=== PATIENT | male | born 1955 | race Caucasian/White ===

== ENCOUNTER 2018-05-23 22:30 | Emergency (ER) | payer BC ==
[~2018-05-23] VITALS: Ht 179.1 cm; Wt 97.3 kg
[2018-05-23] MEDS ORDERED: CefTRIAXone 1000mg IM Kit (w/lidocaine diluent) IM ONE (23:30)
[2018-05-24 00:05] LABS: ALANINE AMINOTRANSFERASE 19 U/L (12-78); ALBUMIN/GLOBULIN RATIO 0.9 (1.1-1.5); ALKALINE PHOSPHATASE 66 IU/L (46-116); ANION GAP 6 (8-16); ASPARTATE AMINO TRANSFERASE 13 U/L (10-37); BILIRUBIN,TOTAL 0.6 MG/DL (0.1-1.0); BLOOD UREA NITROGEN 19 MG/DL (7-18); BUN/CREATININE RATIO 14.3 (5.4-32.0); CHLORIDE 105 MMOL/L (99-107); CREATININE 1.33 MG/DL (0.60-1.10); POTASSIUM 3.7 MMOL/L (3.5-5.1); SODIUM 137 MMOL/L (135-145); TOTAL CARBON DIOXIDE 26.5 MMOL/L (24-32); TOTAL PROTEIN 6.5 G/DL (6.4-8.2); eGFR 54 ML/MIN
[2018-05-24 00:06] LABS: GLUCOSE 105 MG/DL (70-104)
[2018-05-24 00:13] LABS: BASOPHILS % (AUTO) 0.2 % (0-1); EOSINOPHILS # (AUTO) 0.1 X10'3 (0-0.9); EOSINOPHILS % (AUTO) 6.7 % (0-6); HEMATOCRIT 24.3 % (42.0-52.0); HEMOGLOBIN 8.6 g/dl (14.0-17.9); LYMPHOCYTES # (AUTO) 0.7 X10'3 (1.1-4.8); LYMPHOCYTES % (AUTO) 49.9 % (21-51); MEAN CORPUSCULAR HEMOGLOBIN 37.5 PG (27.0-31.0); MEAN CORPUSCULAR HGB CONC 35.1 % (33.0-36.5); MEAN CORPUSCULAR VOLUME 106.7 FL (78-98); MEAN PLATELET VOLUME 7.6 FL (7.4-10.4); MONOCYTES % (AUTO) 0.4 % (2-12); NEUTROPHILS # (AUTO) 0.6 X10'3 (1.8-7.7); NEUTROPHILS % (AUTO) 42.8 % (42-75); PLATELET COUNT 52 X10'3 (140-440); RED BLOOD COUNT 2.28 X10'6 (4.70-6.10); RED CELL DISTRIBUTION WIDTH 14.5 % (11.5-14.5)
[2018-05-24 00:22] LABS: WHITE BLOOD COUNT 1.3 X10'3 (4.5-11.0)
[2018-05-24 00:33] LABS: TOTAL CELLS COUNTED 100
[2018-05-24 00:35] LABS: PLATELET ESTIMATE DECREASED
[2018-05-24] MEDS ORDERED: LEVO500T2 PO (02:19)
[2018-05-24] MEDS ORDERED: HYDR-3965 PO (02:19)
[2018-05-24 02:40] VITALS: BP 134/73
== END 2018-05-24 02:43 | disposition home or self-care (01) ==
LOC: ER 22:32 → MERGE 22:32 → ER 05-24 02:43
DX: L03.116 Cellulitis of left lower limb (principal); Z79.899 Other long term (current) drug therapy
CPT/HCPCS: 36415; 76700; 80053; 85025; 93971; 96372; 99285; J0696

== ENCOUNTER 2018-05-25 14:08 | Inpatient (IN) | payer BC ==
[~2018-05-25] VITALS: Ht 180.3 cm; Wt 95.0 kg
[~2018-05-25 14:08] MED LIST: HYDR-3965 PO; LEVO500T2 PO
[2018-05-25] MEDS ORDERED: normal saline 1000ML IV soln IVB ONE (14:50)
[2018-05-25] MEDS ORDERED: ampicillin/sulbac 3gm/NS 100ml 100 ML IV STA ×2 (14:50→16:57)
[2018-05-25] MEDS ORDERED: gentamicin 40 MG/1 ML inj IV ONE (14:50)
[2018-05-25] MEDS ORDERED: gentamicin inj 410 MG in normal saline 100ml IV soln 100 ML IV ONE (15:10)
[2018-05-25 15:30] LABS: HEMATOCRIT 24.5 % (42.0-52.0); HEMOGLOBIN 8.5 g/dl (14.0-17.9); MEAN CORPUSCULAR HEMOGLOBIN 37.2 PG (27.0-31.0); MEAN CORPUSCULAR HGB CONC 34.7 % (33.0-36.5); MEAN CORPUSCULAR VOLUME 107.2 FL (78-98); MEAN PLATELET VOLUME 7.3 FL (7.4-10.4); PLATELET COUNT 57 X10'3 (140-440); RED BLOOD COUNT 2.28 X10'6 (4.70-6.10); WHITE BLOOD COUNT 1.1 X10'3 (4.5-11.0)
[2018-05-25 15:40] LABS: PARTIAL THROMBOPLASTIN TIME 28 SECONDS (22-32); PROTHROMBIN TIME 10.8 SECONDS (9.0-12.0)
[2018-05-25 15:45] LABS: ALANINE AMINOTRANSFERASE 20 U/L (12-78); ALBUMIN 2.5 G/DL (3.4-5.0); ALBUMIN/GLOBULIN RATIO 0.7 (1.1-1.5); ALKALINE PHOSPHATASE 76 IU/L (46-116); ANION GAP 9 (8-16); ASPARTATE AMINO TRANSFERASE 23 U/L (10-37); BILIRUBIN,TOTAL 0.8 MG/DL (0.1-1.0); BLOOD UREA NITROGEN 15 MG/DL (7-18); BUN/CREATININE RATIO 12.1 (5.4-32.0); CALCIUM 7.8 MG/DL (8.5-10.1); CHLORIDE 104 MMOL/L (99-107); CREATININE 1.24 MG/DL (0.60-1.10); GLUCOSE 117 MG/DL (70-104); POTASSIUM 3.8 MMOL/L (3.5-5.1); SODIUM 136 MMOL/L (135-145); TOTAL CARBON DIOXIDE 22.8 MMOL/L (24-32); TOTAL PROTEIN 6.3 G/DL (6.4-8.2); eGFR 59 ML/MIN
[2018-05-25 15:53] LABS: ANISOCYTOSIS 1+; PLATELET ESTIMATE DECREASED; POLYCHROMASIA FEW; TARGET CELLS FEW; TOTAL CELLS COUNTED 100
[2018-05-25 16:09] LABS: CLARITY,URINE Clear (Clear); COLOR,URINE Yellow (Yellow); GLUCOSE, URINE Negative (Neg); KETONES,URINE Negative (Neg); LEUKOCYTE ESTERASE ,URINE Negative (Neg); NITRITES, URINE Negative (Neg); OCCULT BLOOD,URINE Negative (Neg); PH,URINE 5.5 (4.8-8.0); PROTEIN,URINE Trace mg/dl (Neg)
[2018-05-25 16:16] LABS: UA COLLECTION TYPE CLN CATCH MIDSTREAM
[2018-05-25 16:18] LABS: BACTERIA,URINE NONE SEEN /HPF (Neg); COARSE GRANULAR CAST 0-3 /LPF (NEGATIVE); RBC,URINE 0-2 /HPF (0-2); SQUAMOUS EPITHELIAL CELL,UR FEW /LPF (FEW); WBC,URINE NONE SEEN /HPF (0-4)
[2018-05-25] MEDS ORDERED: ondansetron/PF 4mg/2ml inj IV PRN (17:45)
[2018-05-25] MEDS ORDERED: magnesium Cl slow-release 64mg tablet PO PRN (17:45)
[2018-05-25] MEDS ORDERED: potassium Cl 40MEQ/NS 500ml 500 ML IV PRN ×2 (17:45)
[2018-05-25] MEDS ORDERED: potassium Cl 20 mEq SR tablet PO PRN ×2 (17:45)
[2018-05-25] MEDS ORDERED: magnesium 4gm in 100ml NS 100 ML IV PRN (17:45)
[2018-05-25] MEDS ORDERED: magnesium 1gm/100ml D5W IVPB 50 ML IV PRN (17:45)
[2018-05-25] MEDS ORDERED: HYDROcodone/acetaminophen 5mg/325mg tablet PO PRN (17:45)
[2018-05-25] MEDS ORDERED: heparin, porcine 5000 units/ml vial SQ SCH (20:00)
[2018-05-25] MEDS: docusate sod 100mg capsule PO SCH (21:00)
[2018-05-25] MEDS ORDERED: temazepam 15mg capsule PO PRN (21:00)
[2018-05-25] MEDS: normal saline 1000ml 1,000 ML IV SCH (21:00)
[2018-05-25 21:15] VITALS: BP 110/54
[2018-05-25] MEDS: ceFAZolin 1GM/D5W- ADD-VANTAGE 50 ML IV SCH (23:52)
[2018-05-26] VITALS: BP 124/53
[2018-05-26] MEDS: acetaminophen 325mg tablet PO PRN ×2 (00:41→11:51)
[2018-05-26 05:14] LABS: BASOPHILS % (AUTO) 0.6 % (0-1); EOSINOPHILS # (AUTO) 0.1 X10'3 (0-0.9); EOSINOPHILS % (AUTO) 5.1 % (0-6); HEMATOCRIT 22.2 % (42.0-52.0); HEMOGLOBIN 7.7 g/dl (14.0-17.9); LYMPHOCYTES # (AUTO) 0.4 X10'3 (1.1-4.8); LYMPHOCYTES % (AUTO) 33.2 % (21-51); MEAN CORPUSCULAR HEMOGLOBIN 37.6 PG (27.0-31.0); MEAN CORPUSCULAR HGB CONC 34.7 % (33.0-36.5); MEAN CORPUSCULAR VOLUME 108.2 FL (78-98); MEAN PLATELET VOLUME 7.9 FL (7.4-10.4); MONOCYTES % (AUTO) 3.8 % (2-12); NEUTROPHILS # (AUTO) 0.6 X10'3 (1.8-7.7); NEUTROPHILS % (AUTO) 57.3 % (42-75); RED BLOOD COUNT 2.05 X10'6 (4.70-6.10); RED CELL DISTRIBUTION WIDTH 14.2 % (11.5-14.5); WHITE BLOOD COUNT 1.1 X10'3 (4.5-11.0)
[2018-05-26 05:39] LABS: PLATELET COUNT 50 X10'3 (140-440)
[2018-05-26 06:23] LABS: ANISOCYTOSIS 1+; PLATELET ESTIMATE DECREASED; TOTAL CELLS COUNTED 100
[2018-05-26 06:24] LABS: POLYCHROMASIA FEW
[2018-05-26 06:50] LABS: ALBUMIN 2.2 G/DL (3.4-5.0); ANION GAP 9 (8-16); BLOOD UREA NITROGEN 15 MG/DL (7-18); BUN/CREATININE RATIO 11.3 (5.4-32.0); CALCIUM 7.6 MG/DL (8.5-10.1); CHLORIDE 105 MMOL/L (99-107); CREATININE 1.33 MG/DL (0.60-1.10); GLUCOSE 116 MG/DL (70-104); MAGNESIUM 1.5 MG/DL (1.5-2.4); POTASSIUM 3.8 MMOL/L (3.5-5.1); SODIUM 138 MMOL/L (135-145); eGFR 54 ML/MIN
[2018-05-26 07:33] VITALS: BP 132/57
[2018-05-26] MEDS: K and/or MAG REPLACEMENT MC SCH (08:00)
[2018-05-26] MEDS: docusate sod 100mg capsule PO SCH ×2 (08:28→19:26)
[2018-05-26] MEDS: ceFAZolin 1GM/D5W- ADD-VANTAGE 50 ML IV SCH ×3 (08:28→23:45)
[2018-05-26] MEDS: normal saline 1000ml 1,000 ML IV SCH ×3 (08:28→19:26)
[2018-05-26 11:00] VITALS: BP 148/96
[2018-05-26] MEDS ORDERED: TBO-filgrastim 300 MCG/0.5 ML inj. SQ ONE (11:15)
[2018-05-26 18:00] VITALS: BP 142/66
[2018-05-26] MEDS: lactobacillus rhamnosus 10,000 MMU CELLS/CAPSULE PO SCH (19:26)
[2018-05-26 23:50] VITALS: BP 128/71
[2018-05-27] MEDS: normal saline 1000ml 1,000 ML IV SCH ×2 (05:29→18:36)
[2018-05-27 06:21] LABS: ALBUMIN 1.9 G/DL (3.4-5.0); ANION GAP 7 (8-16); BLOOD UREA NITROGEN 13 MG/DL (7-18); BUN/CREATININE RATIO 11.3 (5.4-32.0); CALCIUM 7.8 MG/DL (8.5-10.1); CHLORIDE 104 MMOL/L (99-107); CREATININE 1.15 MG/DL (0.60-1.10); GLUCOSE 105 MG/DL (70-104); MAGNESIUM 1.7 MG/DL (1.5-2.4); POTASSIUM 3.8 MMOL/L (3.5-5.1); SODIUM 137 MMOL/L (135-145); TOTAL CARBON DIOXIDE 25.8 MMOL/L (24-32); eGFR 64 ML/MIN
[2018-05-27 06:27] LABS: HEMOGLOBIN 7.2 g/dl (14.0-17.9); MEAN CORPUSCULAR HEMOGLOBIN 37.8 PG (27.0-31.0); MEAN CORPUSCULAR HGB CONC 35.2 % (33.0-36.5); MEAN CORPUSCULAR VOLUME 107.3 FL (78-98); MEAN PLATELET VOLUME 8.2 FL (7.4-10.4); RED BLOOD COUNT 1.91 X10'6 (4.70-6.10); RED CELL DISTRIBUTION WIDTH 14.1 % (11.5-14.5); WHITE BLOOD COUNT 1.4 X10'3 (4.5-11.0)
[2018-05-27 07:02] LABS: HEMATOCRIT 20.5 % (42.0-52.0); PLATELET COUNT 47 X10'3 (140-440)
[2018-05-27 07:08] LABS: ANISOCYTOSIS 1+; PLATELET ESTIMATE DECREASED; TOTAL CELLS COUNTED 100
[2018-05-27 07:09] LABS: POLYCHROMASIA FEW; TARGET CELLS FEW
[2018-05-27 07:40] VITALS: BP 134/68
[2018-05-27] MEDS: K and/or MAG REPLACEMENT MC SCH (08:00)
[2018-05-27] MEDS ORDERED: levoFLOXACIN-Levaquin 750MG/D5 150 ML IV SCH (08:00)
[2018-05-27] MEDS: lactobacillus rhamnosus 10,000 MMU CELLS/CAPSULE PO SCH (08:00)
[2018-05-27] MEDS: docusate sod 100mg capsule PO SCH ×2 (08:58→19:28)
[2018-05-27] MEDS: ceFAZolin 1GM/D5W- ADD-VANTAGE 50 ML IV SCH (08:58)
[2018-05-27] MEDS ORDERED: TBO-filgrastim 300 MCG/0.5 ML inj. SQ ONE (11:55)
[2018-05-27 12:41] VITALS: BP 135/67
[2018-05-27] MEDS: piperacillin/tazo 3.375gm/50ml 50 ML IV SCH ×2 (14:38→19:28)
[2018-05-27] MEDS: vancomycin inj 1,250 MG in normal saline 250ml IV soln 250 ML IV SCH (15:25)
[2018-05-27] MEDS: valacyclovir 500mg tablet PO SCH (15:26)
[2018-05-27 19:00] VITALS: BP 123/62
[2018-05-27] MEDS: acetaminophen 325mg tablet PO PRN (19:28)
[2018-05-27] MEDS ORDERED: magnesium hydroxide 30ml (MOM) UD suspension PO PRN (22:45)
[2018-05-27 23:49] VITALS: BP 137/65
[2018-05-28] MEDS: valacyclovir 500mg tablet PO SCH ×3 (00:03→15:56)
[2018-05-28] MEDS: vancomycin inj 1,250 MG in normal saline 250ml IV soln 250 ML IV SCH ×2 (00:03→13:05)
[2018-05-28] MEDS: normal saline 1000ml 1,000 ML IV SCH ×4 (00:04→18:06)
[2018-05-28] MEDS: piperacillin/tazo 3.375gm/50ml 50 ML IV SCH ×2 (01:40→07:57)
[2018-05-28 05:12] LABS: BASOPHILS % (AUTO) 0.1 % (0-1); EOSINOPHILS # (AUTO) 0.1 X10'3 (0-0.9); EOSINOPHILS % (AUTO) 4.3 % (0-6); LYMPHOCYTES # (AUTO) 0.7 X10'3 (1.1-4.8); LYMPHOCYTES % (AUTO) 52.6 % (21-51); MEAN CORPUSCULAR HEMOGLOBIN 36.9 PG (27.0-31.0); MEAN CORPUSCULAR HGB CONC 34.2 % (33.0-36.5); MEAN CORPUSCULAR VOLUME 107.9 FL (78-98); MEAN PLATELET VOLUME 8.1 FL (7.4-10.4); MONOCYTES % (AUTO) 1.8 % (2-12); NEUTROPHILS # (AUTO) 0.5 X10'3 (1.8-7.7); NEUTROPHILS % (AUTO) 41.2 % (42-75); RED BLOOD COUNT 1.89 X10'6 (4.70-6.10); RED CELL DISTRIBUTION WIDTH 13.9 % (11.5-14.5); WHITE BLOOD COUNT 1.3 X10'3 (4.5-11.0)
[2018-05-28 05:24] LABS: HEMATOCRIT 20.4 % (42.0-52.0); PLATELET COUNT 50 X10'3 (140-440)
[2018-05-28 05:34] LABS: ANION GAP 7 (8-16); BLOOD UREA NITROGEN 16 MG/DL (7-18); BUN/CREATININE RATIO 13.3 (5.4-32.0); CALCIUM 7.9 MG/DL (8.5-10.1); CHLORIDE 104 MMOL/L (99-107); GLUCOSE 106 MG/DL (70-104); MAGNESIUM 1.8 MG/DL (1.5-2.4); POTASSIUM 3.8 MMOL/L (3.5-5.1); SODIUM 137 MMOL/L (135-145); TOTAL CARBON DIOXIDE 26.3 MMOL/L (24-32); eGFR 61 ML/MIN
[2018-05-28 06:28] LABS: TOTAL CELLS COUNTED 100
[2018-05-28 06:29] LABS: ANISOCYTOSIS 1+; PLATELET ESTIMATE DECREASED; POLYCHROMASIA FEW
[2018-05-28 06:30] LABS: TEAR DROP CELLS FEW
[2018-05-28 07:00] VITALS: BP 131/68
[2018-05-28] MEDS: acetaminophen 325mg tablet PO PRN ×2 (07:58→19:31)
[2018-05-28] MEDS: docusate sod 100mg capsule PO SCH ×2 (07:58→19:17)
[2018-05-28] MEDS: K and/or MAG REPLACEMENT MC SCH (08:00)
[2018-05-28 11:00] VITALS: BP 98/56
[2018-05-28] MEDS ORDERED: magnesium 1gm/100ml D5W IVPB 100 ML IV PRN (13:27)
[2018-05-28] MEDS: cefepime 2g/NS 100ml ADVANTAGE 100 ML IV SCH (19:31)
[2018-05-28 20:00] VITALS: BP 125/62
[2018-05-29] VITALS (12 sets, daily range): BP systolic 109–135; BP diastolic 51–67
[2018-05-29] MEDS ORDERED: VANCOMYCIN LEVEL IV ONE ×2 (00:30→12:30)
[2018-05-29] MEDS: valacyclovir 500mg tablet PO SCH ×4 (00:42→23:20)
[2018-05-29] MEDS: vancomycin inj 1,250 MG in normal saline 250ml IV soln 250 ML IV SCH (00:42)
[2018-05-29 05:16] LABS: BASOPHILS % (AUTO) 0.6 % (0-1); EOSINOPHILS # (AUTO) 0.1 X10'3 (0-0.9); EOSINOPHILS % (AUTO) 4.1 % (0-6); LYMPHOCYTES # (AUTO) 0.5 X10'3 (1.1-4.8); LYMPHOCYTES % (AUTO) 35.8 % (21-51); MEAN CORPUSCULAR HEMOGLOBIN 37.4 PG (27.0-31.0); MEAN CORPUSCULAR HGB CONC 34.5 % (33.0-36.5); MEAN CORPUSCULAR VOLUME 108.1 FL (78-98); MEAN PLATELET VOLUME 8.4 FL (7.4-10.4); MONOCYTES # (AUTO) 0.2 X10'3 (0-0.9); MONOCYTES % (AUTO) 17.3 % (2-12); NEUTROPHILS # (AUTO) 0.5 X10'3 (1.8-7.7); NEUTROPHILS % (AUTO) 42.2 % (42-75); PLATELET COUNT 55 X10'3 (140-440); RED BLOOD COUNT 1.86 X10'6 (4.70-6.10); RED CELL DISTRIBUTION WIDTH 14.2 % (11.5-14.5); WHITE BLOOD COUNT 1.3 X10'3 (4.5-11.0)
[2018-05-29 05:23] LABS: ALBUMIN 1.9 G/DL (3.4-5.0); ANION GAP 6 (8-16); BLOOD UREA NITROGEN 18 MG/DL (7-18); BUN/CREATININE RATIO 14.3 (5.4-32.0); CALCIUM 7.5 MG/DL (8.5-10.1); CHLORIDE 106 MMOL/L (99-107); CREATININE 1.26 MG/DL (0.60-1.10); GLUCOSE 102 MG/DL (70-104); MAGNESIUM 1.8 MG/DL (1.5-2.4); SODIUM 138 MMOL/L (135-145); TOTAL CARBON DIOXIDE 26.5 MMOL/L (24-32); eGFR 58 ML/MIN
[2018-05-29 05:32] LABS: HEMATOCRIT 20.1 % (42.0-52.0); HEMOGLOBIN 6.9 g/dl (14.0-17.9)
[2018-05-29 06:35] LABS: ANISOCYTOSIS 1+; PLATELET ESTIMATE DECREASED; TOTAL CELLS COUNTED 100; TOXIC GRANULATION 1+
[2018-05-29] MEDS: cefepime 2g/NS 100ml ADVANTAGE 100 ML IV SCH ×2 (07:39→19:42)
[2018-05-29] MEDS: K and/or MAG REPLACEMENT MC SCH (07:41)
[2018-05-29] MEDS: docusate sod 100mg capsule PO SCH ×2 (07:42→20:00)
[2018-05-29] MEDS: acetaminophen 325mg tablet PO PRN ×2 (12:58→23:20)
[2018-05-29] MEDS: normal saline 1000ml 1,000 ML IV SCH (19:42)
[2018-05-30 03:00] VITALS: BP 131/69
[2018-05-30 05:11] LABS: BASOPHILS % (AUTO) 0.6 % (0-1); EOSINOPHILS # (AUTO) 0.1 X10'3 (0-0.9); EOSINOPHILS % (AUTO) 3.1 % (0-6); HEMATOCRIT 22.9 % (42.0-52.0); HEMOGLOBIN 7.9 g/dl (14.0-17.9); LYMPHOCYTES # (AUTO) 0.8 X10'3 (1.1-4.8); LYMPHOCYTES % (AUTO) 49.3 % (21-51); MEAN CORPUSCULAR HGB CONC 34.5 % (33.0-36.5); MEAN CORPUSCULAR VOLUME 104.3 FL (78-98); MEAN PLATELET VOLUME 8.4 FL (7.4-10.4); MONOCYTES # (AUTO) 0.1 X10'3 (0-0.9); NEUTROPHILS # (AUTO) 0.7 X10'3 (1.8-7.7); PLATELET COUNT 72 X10'3 (140-440); RED CELL DISTRIBUTION WIDTH 16.6 % (11.5-14.5); WHITE BLOOD COUNT 1.7 X10'3 (4.5-11.0)
[2018-05-30 05:31] LABS: ALBUMIN 1.9 G/DL (3.4-5.0); ANION GAP 6 (8-16); BLOOD UREA NITROGEN 18 MG/DL (7-18); BUN/CREATININE RATIO 14.9 (5.4-32.0); CHLORIDE 105 MMOL/L (99-107); CREATININE 1.21 MG/DL (0.60-1.10); GLUCOSE 97 MG/DL (70-104); MAGNESIUM 1.9 MG/DL (1.5-2.4); POTASSIUM 4.1 MMOL/L (3.5-5.1); SODIUM 137 MMOL/L (135-145); TOTAL CARBON DIOXIDE 26.4 MMOL/L (24-32); eGFR 61 ML/MIN
[2018-05-30 05:56] LABS: % IRON SATURATION 69 % (11-46); IRON 85 UG/DL (53-167); TOTAL IRON BINDING CAPACITY 123 UG/DL (259-388)
[2018-05-30 06:18] LABS: ANISOCYTOSIS 1+; LARGE PLATELETS FEW; PLATELET ESTIMATE DECREASED; TOTAL CELLS COUNTED 100; TOXIC GRANULATION 1+
[2018-05-30 06:40] LABS: FERRITIN 1366 NG/ML (26-388)
[2018-05-30] MEDS: cefepime 2g/NS 100ml ADVANTAGE 100 ML IV SCH ×2 (07:09→19:30)
[2018-05-30] MEDS: valacyclovir 500mg tablet PO SCH ×2 (07:09→16:45)
[2018-05-30] MEDS: docusate sod 100mg capsule PO SCH ×2 (07:12→19:35)
[2018-05-30] MEDS: K and/or MAG REPLACEMENT MC SCH (07:13)
[2018-05-30 07:32] VITALS: BP 132/67
[2018-05-30] MEDS: normal saline 1000ml 1,000 ML IV SCH ×2 (08:43→17:43)
[2018-05-30 11:40] VITALS: BP 126/60
[2018-05-30 12:39] LABS: OCCULT BLOOD STOOL NEGATIVE (Neg)
[2018-05-30 20:00] VITALS: BP 117/56
[2018-05-31] VITALS: BP 130/70
[2018-05-31] MEDS ORDERED: VANCOMYCIN LEVEL IV ONE (00:30)
[2018-05-31] MEDS: valacyclovir 500mg tablet PO SCH ×4 (00:36→23:15)
[2018-05-31 01:22] LABS: MAGNESIUM 2.1 MG/DL (1.5-2.4); VANCOMYCIN,TROUGH 10.5 UG/ML (6.0-14.0)
[2018-05-31] MEDS: normal saline 1000ml 1,000 ML IV SCH ×3 (03:43→23:16)
[2018-05-31 08:00] VITALS: BP 131/69
[2018-05-31] MEDS: K and/or MAG REPLACEMENT MC SCH (08:00)
[2018-05-31] MEDS: docusate sod 100mg capsule PO SCH ×2 (08:00→20:00)
[2018-05-31] MEDS: cefepime 2g/NS 100ml ADVANTAGE 100 ML IV SCH (08:18)
[2018-05-31 12:00] VITALS: BP 118/52
[2018-05-31 13:28] LABS: BASOPHILS % (AUTO) 0.3 % (0-1); EOSINOPHILS # (AUTO) 0.1 X10'3 (0-0.9); EOSINOPHILS % (AUTO) 3.8 % (0-6); HEMATOCRIT 25.2 % (42.0-52.0); HEMOGLOBIN 8.8 g/dl (14.0-17.9); LYMPHOCYTES # (AUTO) 0.6 X10'3 (1.1-4.8); MEAN CORPUSCULAR HEMOGLOBIN 35.9 PG (27.0-31.0); MEAN CORPUSCULAR HGB CONC 34.8 % (33.0-36.5); MEAN CORPUSCULAR VOLUME 103.1 FL (78-98); MEAN PLATELET VOLUME 8.1 FL (7.4-10.4); MONOCYTES # (AUTO) 0.1 X10'3 (0-0.9); MONOCYTES % (AUTO) 3.1 % (2-12); NEUTROPHILS % (AUTO) 58.8 % (42-75); PLATELET COUNT 143 X10'3 (140-440); RED BLOOD COUNT 2.44 X10'6 (4.70-6.10); RED CELL DISTRIBUTION WIDTH 16.1 % (11.5-14.5); WHITE BLOOD COUNT 1.7 X10'3 (4.5-11.0)
[2018-05-31 14:18] LABS: TOTAL CELLS COUNTED 100
[2018-05-31 14:19] LABS: ANISOCYTOSIS 1+; PLATELET ESTIMATE NORMAL
[2018-05-31 14:20] LABS: TOXIC GRANULATION 1+
[2018-05-31 18:00] VITALS: BP 115/62
[2018-05-31] MEDS: linezolid 600mg tablet PO SCH (20:44)
[2018-06-01] VITALS (8 sets, daily range): BP systolic 114–126; BP diastolic 56–64
[2018-06-01 05:20] LABS: HEMOGLOBIN 7.1 g/dl (14.0-17.9); MEAN CORPUSCULAR HEMOGLOBIN 35.7 PG (27.0-31.0); MEAN CORPUSCULAR HGB CONC 33.9 % (33.0-36.5); MEAN CORPUSCULAR VOLUME 105.2 FL (78-98); MEAN PLATELET VOLUME 8.2 FL (7.4-10.4); PLATELET COUNT 115 X10'3 (140-440); RED BLOOD COUNT 1.98 X10'6 (4.70-6.10); WHITE BLOOD COUNT 1.6 X10'3 (4.5-11.0)
[2018-06-01 05:29] LABS: HEMATOCRIT 20.8 % (42.0-52.0)
[2018-06-01 06:20] LABS: ANISOCYTOSIS 1+; PLATELET ESTIMATE DECREASED; TOTAL CELLS COUNTED 100
[2018-06-01] MEDS: docusate sod 100mg capsule PO SCH ×2 (08:00→19:45)
[2018-06-01] MEDS: K and/or MAG REPLACEMENT MC SCH (08:00)
[2018-06-01] MEDS: valacyclovir 500mg tablet PO SCH ×3 (08:15→23:36)
[2018-06-01] MEDS: linezolid 600mg tablet PO SCH ×2 (08:15→19:46)
[2018-06-01] MEDS ORDERED: VANCOMYCIN LEVEL IV ONE (09:30)
[2018-06-01 11:05] LABS: BASOPHILS % (AUTO) 0.2 % (0-1); EOSINOPHILS # (AUTO) 0.1 X10'3 (0-0.9); EOSINOPHILS % (AUTO) 4.3 % (0-6); LYMPHOCYTES # (AUTO) 0.6 X10'3 (1.1-4.8); MEAN CORPUSCULAR HEMOGLOBIN 35.4 PG (27.0-31.0); MEAN CORPUSCULAR HGB CONC 33.7 % (33.0-36.5); MEAN CORPUSCULAR VOLUME 104.9 FL (78-98); MEAN PLATELET VOLUME 7.7 FL (7.4-10.4); NEUTROPHILS # (AUTO) 0.8 X10'3 (1.8-7.7); NEUTROPHILS % (AUTO) 54.5 % (42-75); PLATELET COUNT 132 X10'3 (140-440); RED BLOOD COUNT 1.98 X10'6 (4.70-6.10); WHITE BLOOD COUNT 1.4 X10'3 (4.5-11.0)
[2018-06-01 11:14] LABS: HEMATOCRIT 20.7 % (42.0-52.0)
[2018-06-01] MEDS ORDERED: diphenhydrAMINE 25mg capsule PO ONE (16:10)
[2018-06-01] MEDS ORDERED: TBO-filgrastim 480 MCG/0.8ml syringe SQ ONE (16:10)
[2018-06-01] MEDS ORDERED: acetaminophen 325mg tablet PO ONE (16:10)
[2018-06-02] VITALS: BP 120/64
[2018-06-02 06:49] LABS: BASOPHILS % (AUTO) 0.3 % (0-1); EOSINOPHILS # (AUTO) 0.1 X10'3 (0-0.9); HEMATOCRIT 23.6 % (42.0-52.0); HEMOGLOBIN 8.2 g/dl (14.0-17.9); LYMPHOCYTES # (AUTO) 0.7 X10'3 (1.1-4.8); LYMPHOCYTES % (AUTO) 37.2 % (21-51); MEAN CORPUSCULAR HEMOGLOBIN 35.2 PG (27.0-31.0); MEAN CORPUSCULAR HGB CONC 34.6 % (33.0-36.5); MEAN CORPUSCULAR VOLUME 101.7 FL (78-98); MEAN PLATELET VOLUME 7.3 FL (7.4-10.4); MONOCYTES % (AUTO) 0.2 % (2-12); NEUTROPHILS # (AUTO) 1.1 X10'3 (1.8-7.7); NEUTROPHILS % (AUTO) 58.3 % (42-75); PLATELET COUNT 159 X10'3 (140-440); RED BLOOD COUNT 2.33 X10'6 (4.70-6.10); RED CELL DISTRIBUTION WIDTH 17.4 % (11.5-14.5); WHITE BLOOD COUNT 1.8 X10'3 (4.5-11.0)
[2018-06-02 07:00] VITALS: BP 115/55
[2018-06-02 07:12] LABS: ANISOCYTOSIS 1+; PLATELET ESTIMATE NORMAL; TOTAL CELLS COUNTED 100
[2018-06-02] MEDS: linezolid 600mg tablet PO SCH (07:45)
[2018-06-02] MEDS: docusate sod 100mg capsule PO SCH (07:45)
[2018-06-02] MEDS: valacyclovir 500mg tablet PO SCH (07:46)
[2018-06-02] MEDS: K and/or MAG REPLACEMENT MC SCH (08:00)
[2018-06-02 11:00] VITALS: BP 108/59
[2018-06-02] MEDS ORDERED: VALA500T37 PO (12:32)
[2018-06-02] MEDS ORDERED: LINE600T6 PO (12:32)
[2018-06-02] MEDS ORDERED: lactobacillus rhamnosus 10,000 MMU CELLS/CAPSULE PO SCH (20:00)
== END 2018-06-02 13:02 | disposition home or self-care (01) | DRG 682 ==
LOC: ER 14:09 → ED HOLD 17:54 → EDBEDREQ 20:28 → SUR 3N 21:10
PROVIDERS: ADMIT Internal Medicine; ATTEND Internal Medicine
PROC: 30233N1 Transfusion of Nonautologous Red Blood Cells into Peripheral Vein, Percutaneous Approach (ICD-10-PCS; principal; 2018-05-29)
DX: N17.9 Acute kidney failure, unspecified (principal); D61.810 Antineoplastic chemotherapy induced pancytopenia; L03.116 Cellulitis of left lower limb; C85.10 Unspecified B-cell lymphoma, unspecified site; B00.2 Herpesviral gingivostomatitis and pharyngotonsillitis; M54.10 Radiculopathy, site unspecified; D64.9 Anemia, unspecified; T45.1X5A Adverse effect of antineoplastic and immunosuppressive drugs, initial encounter; Y92.89 Other specified places as the place of occurrence of the external cause
CPT/HCPCS: 36415; 71045; 80048; 80053; 80202; 81001; 82272; 82607; 82728; 82746; 83540; 83550; 83605; 83735; 84145; 85025; 85610; 85730; 86644; 86885; 86900; 86901; 86920; 86945; 87040; 87070; 96365; 99285; J0295; J0690; J0692; J1442; J1580; J2543; J3370; J7030; J7042; P9016; Q0163

== ENCOUNTER 2020-05-23 09:23 | Emergency (ER) | payer BC, MEDICARE ==
[~2020-05-23] VITALS: Ht 180.3 cm; Wt 96.8 kg
[~2020-05-23 09:23] MED LIST changes: -HYDR-3965 PO; -LEVO500T2 PO; +LINE600T14 PO; +VALA500T41 PO
[2020-05-23 09:52] LABS: BASOPHILS # (AUTO) 0.1 X10'3 (0-0.2); BASOPHILS % (AUTO) 0.9 % (0-1); EOSINOPHILS % (AUTO) 0.2 % (0-6); HEMATOCRIT 43.5 % (42.0-52.0); HEMOGLOBIN 14.5 g/dl (14.0-17.9); LYMPHOCYTES # (AUTO) 0.8 X10'3 (1.1-4.8); LYMPHOCYTES % (AUTO) 13.3 % (21-51); MEAN CORPUSCULAR HGB CONC 33.4 g/dL (33.0-36.5); MEAN CORPUSCULAR VOLUME 89.8 FL (78-98); MEAN PLATELET VOLUME 8.3 FL (7.4-10.4); MONOCYTES # (AUTO) 0.4 X10'3 (0-0.9); MONOCYTES % (AUTO) 6.8 % (2-12); NEUTROPHILS # (AUTO) 4.5 X10'3 (1.8-7.7); NEUTROPHILS % (AUTO) 78.8 % (42-75); PLATELET COUNT 211 X10'3 (140-440); RED BLOOD COUNT 4.84 X10'6 (4.70-6.10); RED CELL DISTRIBUTION WIDTH 12.7 % (11.5-14.5); WHITE BLOOD COUNT 5.7 X10'3 (4.5-11.0)
[2020-05-23 10:04] LABS: ALANINE AMINOTRANSFERASE 24 U/L (12-78); ALBUMIN 3.9 G/DL (3.4-5.0); ALBUMIN/GLOBULIN RATIO 1.3 (1.1-1.5); ALKALINE PHOSPHATASE 100 IU/L (46-116); ANION GAP 8 (8-16); ASPARTATE AMINO TRANSFERASE 20 U/L (10-37); BILIRUBIN,TOTAL 0.8 MG/DL (0.1-1.0); BLOOD UREA NITROGEN 12 MG/DL (7-18); BUN/CREATININE RATIO 9.6 (5.4-32.0); CALCIUM 8.7 MG/DL (8.5-10.1); CHLORIDE 107 MMOL/L (99-107); CREATININE 1.25 MG/DL (0.60-1.10); GLUCOSE 88 MG/DL (70-104); POTASSIUM 4.6 MMOL/L (3.5-5.1); SODIUM 143 MMOL/L (135-145); eGFR 58 ML/MIN
[2020-05-23 13:28] VITALS: BP 156/92
== END 2020-05-23 13:31 | disposition home or self-care (01) ==
LOC: ER 09:23
DX: R06.02 Shortness of breath (principal); R42 Dizziness and giddiness; Z85.71 Personal history of Hodgkin lymphoma; Z79.2 Long term (current) use of antibiotics; Z79.899 Other long term (current) drug therapy
CPT/HCPCS: 36415; 71045; 80053; 83880; 84484; 85025; 93005; 99285

== ENCOUNTER 2021-09-22 15:36 | Emergency (ER) | payer MEDICARE ==
[~2021-09-22] VITALS: Ht 170.2 cm; Wt 90.9 kg
[2021-09-22 16:28] VITALS: BP 156/76
[2021-09-22] MEDS ORDERED: ALBU6.7H9 INH (16:28)
[2021-09-22] MEDS ORDERED: AMOX-422 PO (16:28)
[2021-09-22] MEDS ORDERED: PRED20TA PO (16:28)
== END 2021-09-22 16:40 | disposition home or self-care (01) ==
LOC: ER 15:36
DX: J40 Bronchitis, not specified as acute or chronic (principal); R05.9 Cough, unspecified; R06.2 Wheezing; R09.81 Nasal congestion; Z79.2 Long term (current) use of antibiotics; Z79.899 Other long term (current) drug therapy
CPT/HCPCS: 71045; 99283